=== PATIENT | female | born 1945 | race Caucasian/White ===

== ENCOUNTER 2018-04-21 07:50 | Inpatient (IN) | payer MEDICARE, OTHER ==
[~2018-04-21] VITALS: Ht 154.9 cm; Wt 64.9 kg
[2018-04-21] MEDS ORDERED: SUMA100T PO (08:31)
[2018-04-21] MEDS ORDERED: FURO20TA4 PO (08:31)
[2018-04-21] MEDS ORDERED: METO-357 PO (08:31)
[2018-04-21] MEDS ORDERED: VICODIN PO (08:31)
[2018-04-21] MEDS ORDERED: CLON0.5T12 PO (08:31)
[2018-04-21] MEDS ORDERED: OMEP20TA5 PO (08:31)
[2018-04-21] MEDS ORDERED: PROP150T2 PO (08:31)
[2018-04-21] MEDS ORDERED: FERR325T28 PO (08:31)
[2018-04-21] MEDS ORDERED: WARF4TAB72 PO (08:31)
[2018-04-21] MEDS ORDERED: ROPI0.5T PO ×4 (08:31→13:10)
[2018-04-21] MEDS ORDERED: TRAZ-182 PO (08:31)
[2018-04-21 08:32] LABS: CARBON DIOXIDE 33 mmol/L (21-32); CHLORIDE 102 mmol/L (98-107); GLUCOSE 100 mg/dL (74-106); POTASSIUM 4.3 mmol/L (3.5-5.1); UREA NITROGEN, BLOOD 28 mg/dL (7-18)
[2018-04-21 08:35] LABS: BASOPHILS % (AUTO) 0.5 % (0.0-2.0); EOSINOPHILS # (AUTO) 0.2 K/uL (0.0-0.7); EOSINOPHILS % (AUTO) 3.7 % (0.0-7.0); HEMATOCRIT 38.1 % (31.2-41.9); LYMPHOCYTES # (AUTO) 1.8 K/uL (20.0-40.0); LYMPHOCYTES % (AUTO) 35.5 % (20.5-51.5); MEAN CORPUSCULAR HEMOGLOBIN 30.5 uug (24.7-32.8); MEAN CORPUSCULAR HGB CONC 34 g/dL (32.3-35.6); MEAN CORPUSCULAR VOLUME 89.4 fL (75.5-95.3); MONOCYTES # (AUTO) 0.6 K/uL (2.0-10.0); NEUTROPHILS # (AUTO) 2.3 K/uL (1.8-8.9); NEUTROPHILS % (AUTO) 47.3 % (38.5-71.5); PLATELET COUNT (AUTO) 143 K/uL (179-408); RED BLOOD CELL COUNT(AUTO) 4.26 MIL/uL (3.63-4.92)
[2018-04-21 08:45] LABS: ALANINE AMINOTRANSFERASE 23 U/L (14-59); ALKALINE PHOSPHATASE 82 U/L (50-136); ASPARTATE AMINOTRANSFERASE 19 U/L (15-37); BILIRUBIN,DIRECT 0.1 mg/dL (0.0-0.2); BILIRUBIN,TOTAL 0.3 mg/dL (0.2-1.0); TOTAL PROTEIN, SERUM 7.1 g/dL (6.4-8.2)
[2018-04-21] MEDS ORDERED: CYCL30DR EACHEYE (08:47)
[2018-04-21] MEDS ORDERED: METOPROLOL SUCCINATE XL 50 MG TAB.SR.24H PO SCH (09:00)
[2018-04-21] MEDS ORDERED: methylPREDNISolone SOD SUCC 125 MG/2 ML VIAL IV ONE (09:30)
[2018-04-21] MEDS ORDERED: ALBUTEROL SULFATE 2.5 MG/3 ML NEBU NEB ONE (09:30)
[2018-04-21] MEDS ORDERED: FUROSEMIDE 20 MG/2 ML VIAL IV ONE (09:30)
[2018-04-21] MEDS ORDERED: FUROSEMIDE 40 MG/4 ML VIAL ONE (09:33)
[2018-04-21] MEDS ORDERED: methylPREDNISolone SOD SUCC 125 MG/2 ML VIAL ONE (09:33)
[2018-04-21] MEDS ORDERED: ALBUTEROL SULFATE 2.5 MG/3 ML NEBU ONE (09:34)
[2018-04-21] MEDS ORDERED: ONDANSETRON 4 MG/2 ML VIAL IV PRN (11:30)
[2018-04-21] MEDS ORDERED: MAGNESIUM HYDROXIDE 30 ML LIQUID UDC PO PRN (11:30)
[2018-04-21] MEDS ORDERED: ZOLPIDEM 5 MG TABLET PO PRN (11:30)
[2018-04-21] MEDS ORDERED: IPRATROPIUM BROMIDE 0.5 MG/2.5 ML NEBU NEB PRN (11:30)
[2018-04-21] MEDS ORDERED: ALBUTEROL SULFATE 2.5 MG/3 ML NEBU NEB PRN (11:30)
[2018-04-21] MEDS ORDERED: ACETAMINOPHEN 325 MG TABLET PO PRN (11:30)
[2018-04-21 11:37] VITALS: BP 140/64
[2018-04-21] MEDS: methylPREDNISolone SOD SUCC 125 MG/2 ML VIAL IV SCH ×3 (12:00→23:06)
[2018-04-21] MEDS: ropiniROLE 0.5 MG TABLET PO SCH ×3 (12:26→21:20)
[2018-04-21] MEDS: PROPAFENONE HCL 150 MG TABLET PO SCH ×2 (12:28→16:21)
[2018-04-21] MEDS ORDERED: ropiniROLE 0.5 MG TABLET PO SCH (13:00)
[2018-04-21] MEDS ORDERED: FURO40TA5 PO (13:05)
[2018-04-21] MEDS ORDERED: METO50TA16 PO (13:06)
[2018-04-21] MEDS ORDERED: ROPI0.5T GT (13:08)
[2018-04-21] MEDS ORDERED: HYDR-3326 PO (13:11)
[2018-04-21 14:59] VITALS: BP 130/65
[2018-04-21] MEDS: FUROSEMIDE 40 MG TABLET PO SCH (16:21)
[2018-04-21] MEDS ORDERED: TRAZODONE 50 MG TABLET PO SCH (17:00)
[2018-04-21] MEDS ORDERED: WARFARIN SODIUM 4 MG TABLET PO SCH (17:00)
[2018-04-21 19:00] VITALS: BP 103/55
[2018-04-21] MEDS: CLONAZEPAM 0.5 MG TABLET PO SCH (20:08)
[2018-04-21] MEDS ORDERED: FUROSEMIDE 40 MG/4 ML VIAL IV SCH (21:00)
[2018-04-21] MEDS: METOPROLOL TARTRATE 50 MG TABLET PO SCH (21:00)
[2018-04-21] MEDS: TRAZODONE 50 MG TABLET PO SCH (21:20)
[2018-04-21] MEDS: HYDROCODONE/APAP 5-325MG TABLET PO PRN (23:05)
[2018-04-22] VITALS: BP 104/47
[2018-04-22 04:00] VITALS: BP 123/46
[2018-04-22] MEDS: methylPREDNISolone SOD SUCC 125 MG/2 ML VIAL IV SCH (05:09)
[2018-04-22 06:33] LABS: THYROID STIMULATING HORMONE 0.511 mIU/mL (0.358-3.740)
[2018-04-22 06:38] LABS: CARBON DIOXIDE 33 mmol/L (21-32); CHLORIDE 96 mmol/L (98-107); CHOLESTEROL 279 mg/dL (<200); CREATININE 1.3 mg/dL (0.6-1.3); GLUCOSE 153 mg/dL (74-106); HDL CHOLESTEROL 98 mg/dL (40-60); MAGNESIUM 2.2 mg/dL (1.8-2.4); POTASSIUM 3.3 mmol/L (3.5-5.1); TRIGLYCERIDES 92 MG/DL (30-150); UREA NITROGEN, BLOOD 27 mg/dL (7-18)
[2018-04-22 06:47] LABS: PHOSPHOROUS 3.5 mg/dL (2.5-4.9)
[2018-04-22 07:20] LABS: LYMPHOCYTES # (AUTO) 0.8 K/uL (20.0-40.0); MONOCYTES # (AUTO) 0.5 K/uL (2.0-10.0); NEUTROPHILS # (AUTO) 12.3 K/uL (1.8-8.9)
[2018-04-22 07:24] LABS: BASOPHILS % (AUTO) 0.1 % (0.0-2.0); LYMPHOCYTES % (AUTO) 5.9 % (20.5-51.5); MEAN CORPUSCULAR HEMOGLOBIN 30.8 uug (24.7-32.8); MEAN CORPUSCULAR HGB CONC 34 g/dL (32.3-35.6); MEAN CORPUSCULAR VOLUME 90.8 fL (75.5-95.3); MONOCYTES % (AUTO) 3.5 % (0.0-11.0); NEUTROPHILS % (AUTO) 90.5 % (38.5-71.5); PLATELET COUNT (AUTO) 166 K/uL (179-408); RED BLOOD CELL COUNT(AUTO) 4.67 MIL/uL (3.63-4.92)
[2018-04-22 07:27] LABS: HEMATOCRIT 42.4 % (31.2-41.9); HEMOGLOBIN 14.4 g/dL (10.9-14.3)
[2018-04-22 07:28] LABS: WHITE BLOOD COUNT (AUTO) 13.5 K/uL (3.8-11.8)
[2018-04-22] MEDS: ropiniROLE 0.5 MG TABLET PO SCH ×4 (08:30→20:15)
[2018-04-22] MEDS: METOPROLOL TARTRATE 50 MG TABLET PO SCH ×2 (08:30→20:15)
[2018-04-22] MEDS: PROPAFENONE HCL 150 MG TABLET PO SCH ×3 (08:30→16:39)
[2018-04-22] MEDS: FUROSEMIDE 40 MG TABLET PO SCH ×2 (08:30→16:39)
[2018-04-22] MEDS: FERROUS SULFATE 325 MG TABEC PO SCH (08:30)
[2018-04-22] MEDS ORDERED: CLONAZEPAM 0.5 MG TABLET PO SCH (09:00)
[2018-04-22] MEDS ORDERED: DIAZEPAM 5 MG TABLET PO PRN (10:45)
[2018-04-22] MEDS: SUMATRIPTAN SUCCINATE 50 MG TABLET PO PRN (11:17)
[2018-04-22] MEDS: POLYVINYL ALCOHOL OPHT DROPS 15 ML BOTTLE EACHEYE PRN ×2 (11:18→20:16)
[2018-04-22 11:49] VITALS: BP 118/49
[2018-04-22] MEDS: methylPREDNISolone SOD SUCC 40 MG/ML VIAL IV SCH ×2 (13:32→22:40)
[2018-04-22] MEDS ORDERED: POTASSIUM CHLORIDE 20 MEQ TAB.PRT.SR PO ONE (14:15)
[2018-04-22 15:40] VITALS: BP 130/50
[2018-04-22] MEDS: PANTOPRAZOLE SODIUM 40 MG TABLET.DR PO SCH (16:39)
[2018-04-22] MEDS ORDERED: WARFARIN SODIUM 4 MG TABLET PO SCH (17:00)
[2018-04-22 20:00] VITALS: BP 115/53
[2018-04-22] MEDS: CLONAZEPAM 0.5 MG TABLET PO SCH (20:14)
[2018-04-22] MEDS: TRAZODONE 50 MG TABLET PO SCH (20:15)
[2018-04-22] MEDS: EZETIMIBE 10 MG TABLET PO SCH (21:48)
[2018-04-22] MEDS: ATORVASTATIN 20 MG TABLET PO SCH (21:48)
[2018-04-22] MEDS: HYDROCODONE/APAP 5-325MG TABLET PO PRN (22:50)
[2018-04-23] MEDS ORDERED: WARFARIN SODIUM 4 MG TABLET PO SCH (01:15)
[2018-04-23 04:00] VITALS: BP 108/64
[2018-04-23] MEDS: PANTOPRAZOLE SODIUM 40 MG TABLET.DR PO SCH (06:08)
[2018-04-23] MEDS: methylPREDNISolone SOD SUCC 40 MG/ML VIAL IV SCH ×3 (06:08→21:31)
[2018-04-23] MEDS: ropiniROLE 0.5 MG TABLET PO SCH ×4 (06:29→21:51)
[2018-04-23 06:52] LABS: HEMATOCRIT 38.9 % (31.2-41.9); LYMPHOCYTES # (AUTO) 0.8 K/uL (20.0-40.0); LYMPHOCYTES % (AUTO) 6.6 % (20.5-51.5); MEAN CORPUSCULAR HGB CONC 33 g/dL (32.3-35.6); MEAN CORPUSCULAR VOLUME 89.9 fL (75.5-95.3); MONOCYTES # (AUTO) 0.3 K/uL (2.0-10.0); MONOCYTES % (AUTO) 2.1 % (0.0-11.0); NEUTROPHILS # (AUTO) 11.7 K/uL (1.8-8.9); NEUTROPHILS % (AUTO) 91.3 % (38.5-71.5); PLATELET COUNT (AUTO) 170 K/uL (179-408); RED BLOOD CELL COUNT(AUTO) 4.33 MIL/uL (3.63-4.92); WHITE BLOOD COUNT (AUTO) 12.9 K/uL (3.8-11.8)
[2018-04-23 07:05] LABS: CARBON DIOXIDE 32 mmol/L (21-32); CHLORIDE 100 mmol/L (98-107); CREATININE 1.4 mg/dL (0.6-1.3); GLUCOSE 134 mg/dL (74-106); MAGNESIUM 2.3 mg/dL (1.8-2.4); PHOSPHOROUS 3.4 mg/dL (2.5-4.9); POTASSIUM 3.6 mmol/L (3.5-5.1); UREA NITROGEN, BLOOD 40 mg/dL (7-18)
[2018-04-23] MEDS: FUROSEMIDE 40 MG TABLET PO SCH (08:14)
[2018-04-23] MEDS: FERROUS SULFATE 325 MG TABEC PO SCH (08:15)
[2018-04-23] MEDS: PROPAFENONE HCL 150 MG TABLET PO SCH ×3 (08:18→16:32)
[2018-04-23] MEDS: METOPROLOL TARTRATE 50 MG TABLET PO SCH ×2 (08:18→21:54)
[2018-04-23 11:41] VITALS: BP 115/46
[2018-04-23] MEDS ORDERED: MAG HYDROX/AL HYDROX/SIMETH 30 ML LIQUID UDC PO PRN (13:45)
[2018-04-23 15:07] VITALS: BP 104/50
[2018-04-23 20:00] VITALS: BP 131/64
[2018-04-23] MEDS: SUMATRIPTAN SUCCINATE 50 MG TABLET PO PRN (20:04)
[2018-04-23] MEDS: EZETIMIBE 10 MG TABLET PO SCH (21:51)
[2018-04-23] MEDS: TRAZODONE 50 MG TABLET PO SCH (21:51)
[2018-04-23] MEDS: CLONAZEPAM 0.5 MG TABLET PO SCH (21:51)
[2018-04-23] MEDS: ATORVASTATIN 20 MG TABLET PO SCH (21:51)
[2018-04-23] MEDS ORDERED: WARFARIN SODIUM 4 MG TABLET PO ONE (23:00)
[2018-04-24 04:00] VITALS: BP 116/52
[2018-04-24] MEDS: HYDROCODONE/APAP 5-325MG TABLET PO PRN (04:38)
[2018-04-24 06:06] LABS: BASOPHILS % (AUTO) 0.1 % (0.0-2.0); HEMATOCRIT 38.6 % (31.2-41.9); HEMOGLOBIN 13.1 g/dL (10.9-14.3); LYMPHOCYTES # (AUTO) 0.7 K/uL (20.0-40.0); LYMPHOCYTES % (AUTO) 7.3 % (20.5-51.5); MEAN CORPUSCULAR HEMOGLOBIN 30.4 uug (24.7-32.8); MEAN CORPUSCULAR HGB CONC 34 g/dL (32.3-35.6); MEAN CORPUSCULAR VOLUME 89.4 fL (75.5-95.3); MONOCYTES # (AUTO) 0.4 K/uL (2.0-10.0); MONOCYTES % (AUTO) 3.8 % (0.0-11.0); NEUTROPHILS # (AUTO) 9.1 K/uL (1.8-8.9); NEUTROPHILS % (AUTO) 88.8 % (38.5-71.5); PLATELET COUNT (AUTO) 160 K/uL (179-408); RED BLOOD CELL COUNT(AUTO) 4.32 MIL/uL (3.63-4.92); WHITE BLOOD COUNT (AUTO) 10.3 K/uL (3.8-11.8)
[2018-04-24] MEDS: PANTOPRAZOLE SODIUM 40 MG TABLET.DR PO SCH (06:06)
[2018-04-24 06:34] LABS: ALANINE AMINOTRANSFERASE 25 U/L (14-59); ALKALINE PHOSPHATASE 73 U/L (50-136); ASPARTATE AMINOTRANSFERASE 18 U/L (15-37); BILIRUBIN,TOTAL 0.3 mg/dL (0.2-1.0); CARBON DIOXIDE 32 mmol/L (21-32); CHLORIDE 103 mmol/L (98-107); CREATININE 1.2 mg/dL (0.6-1.3); GLUCOSE 124 mg/dL (74-106); MAGNESIUM 2.3 mg/dL (1.8-2.4); PHOSPHOROUS 3.2 mg/dL (2.5-4.9); POTASSIUM 3.7 mmol/L (3.5-5.1); TOTAL PROTEIN, SERUM 6.8 g/dL (6.4-8.2); UREA NITROGEN, BLOOD 41 mg/dL (7-18)
[2018-04-24] MEDS: methylPREDNISolone SOD SUCC 40 MG/ML VIAL IV SCH (08:40)
[2018-04-24] MEDS: PROPAFENONE HCL 150 MG TABLET PO SCH ×4 (08:42→17:41)
[2018-04-24] MEDS: FERROUS SULFATE 325 MG TABEC PO SCH (08:42)
[2018-04-24] MEDS: ropiniROLE 0.5 MG TABLET PO SCH ×3 (08:42→17:41)
[2018-04-24] MEDS: METOPROLOL TARTRATE 50 MG TABLET PO SCH (08:42)
[2018-04-24] MEDS ORDERED: FUROSEMIDE 40 MG TABLET PO SCH (09:00)
[2018-04-24] MEDS ORDERED: BISACODYL 10 MG SUPP.RECT RC PRN (11:00)
[2018-04-24 11:08] VITALS: BP 108/55
[2018-04-24] MEDS ORDERED: POTASSIUM CHLORIDE 20 MEQ TAB.PRT.SR PO ONE (11:15)
[2018-04-24] MEDS ORDERED: ALBU8.5H8 INH (14:27)
[2018-04-24] MEDS ORDERED: FURO40TA5 PO (14:27)
[2018-04-24] MEDS ORDERED: APIX5TAB4 PO (14:27)
[2018-04-24 15:58] VITALS: BP 95/53
[2018-04-24] MEDS: WARFARIN SODIUM 4 MG TABLET PO SCH ×2 (17:00→17:48)
[2018-04-24] MEDS: POLYVINYL ALCOHOL OPHT DROPS 15 ML BOTTLE EACHEYE PRN (17:45)
== END 2018-04-24 20:15 | disposition home health service (06) | DRG 291 ==
LOC: ER 07:52 → TELE 09:35 → MED 04-22 15:27
PROVIDERS: ADMIT Internal Medicine
DX: I11.0 Hypertensive heart disease with heart failure (principal); J96.21 Acute and chronic respiratory failure with hypoxia; N17.0 Acute kidney failure with tubular necrosis; J44.1 Chronic obstructive pulmonary disease with (acute) exacerbation; B02.21 Postherpetic geniculate ganglionitis; D68.59 Other primary thrombophilia; I50.33 Acute on chronic diastolic (congestive) heart failure; I48.0 Paroxysmal atrial fibrillation; Z79.01 Long term (current) use of anticoagulants; Z99.81 Dependence on supplemental oxygen; E87.5 Hyperkalemia; E78.5 Hyperlipidemia, unspecified; K21.9 Gastro-esophageal reflux disease without esophagitis; Z82.5 Family history of asthma and other chronic lower respiratory diseases; Z96.653 Presence of artificial knee joint, bilateral; Z96.641 Presence of right artificial hip joint; R91.8 Other nonspecific abnormal finding of lung field; Z80.9 Family history of malignant neoplasm, unspecified; Z79.899 Other long term (current) drug therapy; I34.0 Nonrheumatic mitral (valve) insufficiency; I25.10 Atherosclerotic heart disease of native coronary artery without angina pectoris
CPT/HCPCS: 36415; 70030-TC; 71045; 71270; 83735; 84100; 84443; 85025; 85610; 85730; 93005; 93307; 94664; 97116; A4663; J1940; J2405; J2920; J2930